=== PATIENT | female | born 1955 | race African-American/Black ===

== ENCOUNTER 2017-01-05 18:41 | Emergency (ER) | payer OTHER ==
[2017-01-05 18:56] VITALS: BP 120/79
--- NOTE | 2017-01-05 19:01 | ED Physician Documentation ---
General Adult - HISTORIAN Historian: patient - HPI Stated Complaint: broken nail Chief Complaint: General Adult Onset: minutes Further Comments: yes (61 year old female patient presents with left 4th digit broken nail. Patient states her nail caught in the screen door. Patient states she went to the nail salon, "but they couldn't do a thing with it, so I came here.") - ROS CONST: no problems EYES/ENT: none CVS/RESP: none GI/: none MS/SKIN/LYMPH: none - PAST HX Past History: hypertension Allergies/Adverse Reactions: Allergies Allergy/AdvReac Type Severity Reaction Status Date / Time No Known Allergies Allergy Verified 07/01/16 18:00 Home Medications: Ambulatory Orders Medication Instructions Recorded Fluticasone Propionate 110 Mcg 1 puff IH DAILY 11/27/14 [Flovent Hfa] Tiotropium [place] [Spiriva] 1 inh IH QD 11/27/14 amLODIPine BESYLATE [Norvasc] 5 mg PO D 11/27/14 Oxycodone HCl/Acetaminophen 1 each PO Q6H PRN 06/01/15 [Percocet 10/325] Orphenadrine Citrate [Norflex] 100 mg PO BID 7 Days 06/17/15 Meloxicam [Mobic] 7.5 mg PO BID #60 tablet 07/01/16 Meloxicam [Mobic] 7.5 mg PO BID PRN #60 tablet 07/01/16 - SOCIAL HX Smoking History: non-smoker - FAMILY HX Family History: No - VITAL SIGNS Vital Signs: Vital Signs Temp Pulse Resp BP Pulse Ox 98.1 F 90 18 120/79 98 01/05/17 18:55 01/05/17 18:55 01/05/17 18:55 01/05/17 18:55 01/05/17 18:55 - REVIEWED ASSESSMENTS Nursing Assessment Reviewed: Yes Vitals Reviewed: Yes Progress - Progress Progress: Offered to remove nail - patient refused. Encourage patient to keep dressing on nail until it grows out. General Adult Physical Exam - PHYSICAL EXAM GENERAL APPEARANCE: mild distress SKIN: warm/dry, normal color, other (4th digit - left hand with nail broken at distal nail bed. ) NEURO: oriented X3, mood/affect nml Discharge Clincal Impression: Nail bed injury Referrals: Primary Doctor,No [Primary Care Provider] - 2 Days Additional Instructions: Clean the wound twice a day with soap and water Keep covered until nail has grown out. Do not soak wound in acetone or khmer remover. Home Medications: Ambulatory Orders Fluticasone Propionate 110 Mcg [Flovent Hfa] 1 puff IH DAILY 11/27/14 Tiotropium [place] [Spiriva] 1 inh IH QD 11/27/14 amLODIPine BESYLATE [Norvasc] 5 mg PO D 11/27/14 Oxycodone HCl/Acetaminophen [Percocet 10/325] 1 each PO Q6H PRN 06/01/15 Orphenadrine Citrate [Norflex] 100 mg PO BID 7 Days 06/17/15 Meloxicam [Mobic] 7.5 mg PO BID #60 tablet 07/01/16 Meloxicam [Mobic] 7.5 mg PO BID PRN #60 tablet 07/01/16 Condition: Stable Disposition: 01 HOME, SELF-CARE Decision to Admit: NO Decision Time: 19:01
== END 2017-01-05 19:25 | disposition home or self-care (01) ==
LOC: ED 18:41
DX: S69.92XA Unspecified injury of left wrist, hand and finger(s), initial encounter (principal); X58.XXXA Exposure to other specified factors, initial encounter; Y93.9 Activity, unspecified; Y99.9 Unspecified external cause status
CPT/HCPCS: 99282

== ENCOUNTER 2017-04-09 11:59 | Emergency (ER) | payer OTHER ==
[2017-04-09 12:30] VITALS: BP 133/84
[2017-04-09] MEDS: ORPHENADRINE CITRATE 60 MG/2ML IM ONE (12:46)
[2017-04-09] MEDS: KETOROLAC TROMETHAMINE 60 MG/2 ML VIAL IM ONE (12:47)
[2017-04-09 12:54] LABS: APPEARANCE,URINE Clear (CLEAR); COLOR,URINE Yellow (YELLOW); OCCULT BLOOD,URINE Trace-lysed (NEGATIVE); PH URINE 5.5 (5.0 - 8.0); UROBILINOGEN URINE 0.2 Eu (0.2-1.0)
[2017-04-09 13:13] LABS: AMORPHOUS SEDIMENT,UR FEW (NEGATIVE)
--- NOTE | 2017-04-09 13:45 | ED Physician Documentation ---
General Adult - HISTORIAN Historian: patient - HPI Stated Complaint: Right lower back pain Chief Complaint: General Adult Further Comments: yes (62 year old female patient presents with complaints of back pain - right lower back. Denies injury or fall.) - ROS CONST: no problems EYES/ENT: none CVS/RESP: none GI/: none MS/SKIN/LYMPH: none NEURO/PSYCH: denies: headache, fainting, dizziness, tingling, numbness, difficulty walking, difficulty with speech, anxiety, depression, other - PAST HX Past History: hypertension Allergies/Adverse Reactions: Allergies Allergy/AdvReac Type Severity Reaction Status Date / Time No Known Allergies Allergy Verified 07/01/16 18:00 Home Medications: Ambulatory Orders Medication Instructions Recorded amLODIPine BESYLATE [Norvasc] 5 mg PO D 11/27/14 metroNIDAZOLE [Flagyl] 500 mg PO BID #14 tablet 04/09/17 - SOCIAL HX Smoking History: cigarettes - FAMILY HX Family History: No - VITAL SIGNS Vital Signs: Vital Signs Temp Pulse Resp BP Pulse Ox 98.8 F 96 H 25 H 133/84 96 04/09/17 12:17 04/09/17 12:17 04/09/17 12:17 04/09/17 12:17 04/09/17 12:17 - REVIEWED ASSESSMENTS Nursing Assessment Reviewed: Yes Vitals Reviewed: Yes Progress - Progress Progress: UA with trichomonas. Discussed with patient, offered STD testing. Education provided. Patient would like testing. Speculum exam - STD testing obtained, large amount of white discharge. Patient tolerated well. No adnexal tenderness. ED Results Lab/Radiology - Lab Results Lab Results: Lab Results 04/09/17 12:50 Urine Color Yellow (YELLOW) Urine Appearance Clear (CLEAR) Urine pH 5.5 (5.0 - 8.0) Ur Specific [place] 1.020 (1.010-1.030) Urine Protein Negative mg/dL mg/dL (NEGATIVE) Urine Ketones Negative mg/dL mg/dL (NEGATIVE) Urine Occult Blood Trace-lysed (NEGATIVE) Urine Nitrite Negative (NEGATIVE) Urine Bilirubin Negative (NEGATIVE) Urine Urobilinogen 0.2 Eu Eu (0.2-1.0) Ur Leukocyte Esterase Trace (NEGATIVE) Urine RBC 0-2 (0-2 HPF) Urine WBC 5-10 H (0-5 HPF) Ur Squamous Epith Cells Few (NEG-FEW) Amorphous Sediment Few H (NEGATIVE) Urine Trichomonas Present H (NEGATIVE) Urine Glucose Negative mg/dL mg/dL (NEGATIVE) - Orders Orders: ED Orders Category Date Time Status Pelvic Exam with Cultures 1T Care 04/09/17 13:25 Active CHLAMYDIA & GONORRHOEAE Stat Lab 04/09/17 Ordered TRICHOMONAS & COLLEEN PREP GENITAL Stat Lab 04/09/17 12:50 Received UA W/MICRO IF INDICATED Stat Lab 04/09/17 12:50 Completed URINE CULTURE Stat Lab 04/09/17 12:50 Received Ketorolac Tromethamine [Toradol] Med 04/09/17 12:28 Discontinued 60 mg IM NOW ONE Orphenadrine Citrate [Norflex] Med 04/09/17 12:28 Discontinued 60 mg IM NOW ONE General Adult Physical Exam - PHYSICAL EXAM GENERAL APPEARANCE: [id number] N EENT: eye inspection normal, DEBBIE RESPIRATORY: no resp distress, chest non-tender, breath sounds normal CVS: reg rate & rhythm, heart sounds normal, equal pulses, no murmur, no gallop , PMI nml, no JVD, no friction rub, 24 ABDOMEN: soft, no organomegaly, normal bowel sounds, no abdominal bruit, no distension BACK: normal inspection, no CVA tenderness, other (Right lower backbreaker to light palpation) SKIN: normal color, warm/dry, NR, INT, PAL, DR EXTREMITIES: non-tender, normal range of motion, no evidence of injury, no edema , J, [employer] NEURO: oriented X3, CN's nml as tested, motor nml, sensation nml, mood/affect nml Discharge Clincal Impression: Trichomoniasis of vagina Prescriptions: metroNIDAZOLE [Flagyl] 500 mg PO BID #14 tablet Referrals: Primary Doctor,No [Primary Care Provider] - 2 Days Additional Instructions: Your urine specimen was positive for trich. We have sent off a vaginal swab to confirm. We have sent off gonorrhoeae and chloamydia testing as well Results should come back in 24-48 hours. You can call the ER for results, if any tests are positive we will call you. An antibiotic was sent to the pharmacy today, pick it up and start it today. No intercourse until you have completed your antibiotic. Encourage any sexual partners to obtain testing at their DOCTOR'S OFFICE or the health department. Home Medications: Ambulatory Orders amLODIPine BESYLATE [Norvasc] 5 mg PO D 11/27/14 metroNIDAZOLE [Flagyl] 500 mg PO BID #14 tablet 04/09/17 Condition: Stable Disposition: 01 HOME, SELF-CARE Decision to Admit: NO Decision Time: 13:44
== END 2017-04-09 13:50 | disposition home or self-care (01) ==
LOC: ED 11:59
DX: A59.01 Trichomonal vulvovaginitis (principal)
CPT/HCPCS: 81002; 87086; 87210; 87801; J1885; J2360; 87186; 96372; 99283

== ENCOUNTER 2017-06-02 11:26 | Emergency (ER) | payer OTHER ==
--- NOTE | 2017-06-02 12:00 | ED Physician Documentation ---
Low Back Pain - HISTORIAN Historian: patient - HPI Stated Complaint: back pain Chief Complaint: Low Back Pain/ Injury Additional Information: no new trauma. she had surgery on the 5th and her back has been hurting ever since. usually takes aleve but not helping now. no injury. has chronic back pain. now radiating down R leg. History: history of chronic pain:, back pain Onset: days ago Duration: continues in ED Recent Injury: No Severity: mild Quality: sharp, similar- prior back pain Associated Symptoms: denies: fever, chills, constipation, incontinence, problems urinating, weakness Worsened By:: movement to RT flexion, movement to LT flexion Relieved By: nothing Further Comments: no - ROS CONST: no problems CVS/RESP: none EYES/ENT: none MS/SKIN/LYMPH: none Neuro/Psych: none GI/: denies: abdominal pain - PAST HX Past History: arthritis, back pain Other History: hypertension Surgeries/Procedures: hysterectomy, Allergies/Adverse Reactions: Allergies Allergy/AdvReac Type Severity Reaction Status Date / Time No Known Allergies Allergy Verified 06/02/17 11:43 Home Medications: Ambulatory Orders Medication Instructions Recorded amLODIPine BESYLATE [Norvasc] 5 mg PO D 11/27/14 - SOCIAL HX Smoking History: cigarettes Alcohol Use: none Drug Use: none - FAMILY HX Family History: none - VITAL SIGNS Vital Signs: Vital Signs Temp Pulse Resp BP Pulse Ox 98.2 F 81 18 155/75 98 06/02/17 11:36 06/02/17 11:36 06/02/17 11:36 06/02/17 11:36 06/02/17 11:36 - REVIEWED ASSESSMENTS Nursing Assessment Reviewed: Yes Vitals Reviewed: Yes Low Back Pain/Injury - Physical Exam General Appearance: no acute distress, alert EENT: ENT inspection normal Neck: non-tender Resp/CVS: chest non-tender Abdomen: non-tender Back: vertebral point-tendernes, muscle spasm Neuro/Psych: oriented x3 Skin: warm/dry, normal color Extremities: non-tender, no evidence of injury Discharge Clincal Impression: Sciatica associated with disorder of lumbar spine Back pain Qualifiers: Back pain location: low back pain Chronicity: chronic Back pain laterality: right Sciatica presence: with sciatica Sciatica laterality: sciatica of right side Qualified Code(s): M54.41 - Lumbago with sciatica, right side; G89.29 - Other chronic pain Referrals: Primary Doctor,No [Primary Care Provider] - 2 Days Condition: Stable Disposition: 01 HOME, SELF-CARE Decision to Admit: NO Date of Decison to Admit: 06/02/17 Decision Time: 12:03
[2017-06-02] MEDS ORDERED: methylPREDNISolone SOD SUCC 125 MG/2 ML VIAL IM ONE (12:03)
[2017-06-02] MEDS ORDERED: KETOROLAC TROMETHAMINE 30 MG/1ML VIAL IM ONE (12:04)
[2017-06-02] MEDS ORDERED: ORPHENADRINE CITRATE 60 MG/2ML IM ONE (12:04)
[2017-06-02 12:32] VITALS: BP 142/74
== END 2017-06-02 12:30 | disposition home or self-care (01) ==
LOC: ED 11:26
DX: M54.30 Sciatica, unspecified side (principal); M54.41 Lumbago with sciatica, right side
CPT/HCPCS: J1885; J2360; J2930; 96374; 96375; 99283

== ENCOUNTER 2017-09-12 07:29 | Emergency (ER) | payer OTHER ==
--- NOTE | 2017-09-12 07:49 | ED Physician Documentation ---
Upper Respiratory Symptoms - HISTORIAN Historian: patient, child - HPI Chief Complaint: Cough/ Upper Respiratory Additional Information: onset yest of sig non prod cough ache all over lachelle chest back from coughing-no fever-no prev flu vaccine Onset: days ago (1) Duration: intermittent episodes Context: denies: recent foreign travel, insect bite(s), recent chemotherapy Severity: moderate Associated Symptoms: chills, sweating, runny nose, sore throat, hurts to breathe. denies: fever, productive cough - ROS CONST/EYES: weakness. denies: eye redness, eye itching CVS/RESP: chest pain, shortness of breath (lachelle w/ coughing bouts) LYMPH: denies: leg swelling, swollen glands, ankle swelling GI/: denies: abdominal pain, problems urinating, vomiting, nausea, diarrhea MS/SKIN: joint pain, muscle aches. denies: rash - PAST HX Lung Disease: asthma, bronchitis. denies: pneumonia PE Risk Factors: hypertension Surgeries/Procedures: hysterectomy (pt states pre cancerous colonic polyp found last) Allergies/Adverse Reactions: Allergies Allergy/AdvReac Type Severity Reaction Status Date / Time No Known Allergies Allergy Verified 09/12/17 07:47 Home Medications: Ambulatory Orders Medication Instructions Recorded amLODIPine BESYLATE [Norvasc] 5 mg PO D 11/27/14 - SOCIAL HX Smoking History: cigarettes Alcohol Use: none Drug Use: none - FAMILY HX Family History: denies: no significant history (flu in family-pt says "I got it from my daughter") - VITAL SIGNS Vital Signs: Vital Signs Temp Pulse Resp BP Pulse Ox 98.8 F 111 H 26 H 142/74 94 09/12/17 07:49 09/12/17 07:49 09/12/17 07:49 06/02/17 12:30 09/12/17 07:49 - REVIEWED ASSESSMENTS Nursing Assessment Reviewed: Yes Vitals Reviewed: Yes ED Results Lab/Radiology - Radiology Radiology Impressions: cxr=poss rlq infiltrate--radiologists thinks normal - Orders Orders: ED Orders Category Date Time Status CHEST P.A.&LAT 2 VIEWS [RAD] Stat Exams 09/12/17 Ordered INFLUENZA A&B Routine Lab 09/12/17 Uncollected Benzonatate [Tessalon] Med 09/12/17 08:36 Discontinued 200 mg PO .STK-MED ONE Benzonatate [Tessalon] Med 09/12/17 08:36 Once 200 mg PO NOW ONE Ibuprofen [Advil] Med 09/12/17 08:11 Once 600 mg PO NOW ONE Ipratropium/Albuterol Sulfate [Duoneb] Med 09/12/17 07:51 Once 3 ml NEB NOW ONE Upper Respiratory Symptoms - EXAM General Appearance: mild distress, moderate distress EENT: No: eyes nml inspection Neck: normal inspection Respiratory: speaks full sentences, decreased air movement, wheezes, rales. No : breath sounds nml, respiratory failure, retractions, splinting Abdomen: non-tender (perhaps from frequent coughing) CVS: reg rate & rhythm Skin: color nml, no rash, warm,dry. No: cyanosis, diaphoresis, pallor Extremities: non-tender, normal range of motion, no evidence of injury Neuro/Psych: oriented x3, depressed mood/affect Discharge Clincal Impression: influenza non a/b Referrals: Primary Doctor,No [Primary Care Provider] - 2 Days Comments: rest bal nutrition vits ibu tessalon as needed Condition: Fair Disposition: 01 HOME, SELF-CARE Decision to Admit: NO Decision Time: 08:39
[2017-09-12] MEDS ORDERED: IPRATROPIUM/ALBUTEROL SULFATE 3 ML AMPUL.NEB NEB ONE (07:51)
[2017-09-12] MEDS ORDERED: IBUPROFEN 200 MG TABLET PO ONE (08:11)
[2017-09-12] MEDS ORDERED: BENZONATATE 100 MG CAPSULE PO ONE ×2 (08:36)
--- NOTE | 2017-09-12 08:38 | Diagnostic Imaging Report ---
[facility] [id number] [id number] Report Submission Date: Sep 12, 2017 8:31:21 AM GUEST SERVICE SUPERVISOR Patient Study Name: ERVIN CANALES Date: Sep 12, 2017 8:15:01 AM GUEST SERVICE SUPERVISOR Modality Type: CR Gender: F Description: CHEST : 51 Institution: [facility] Physician: LAMONT MARTINEZ Chest, PA and lateral History: Cough, shortness of breath Findings: No infiltrate, effusion or pneumothorax is present. Heart size, mediastinum and pulmonary vascularity are normal. Impression: No active disease. Electronically signed on Sep 12, 2017 8:31:21 AM GUEST SERVICE SUPERVISOR by: Gorge ALONSO
== END 2017-09-12 08:49 | disposition home or self-care (01) ==
LOC: ED 07:29
DX: J11.1 Influenza due to unidentified influenza virus with other respiratory manifestations (principal)
CPT/HCPCS: 71020; 87400; 94640; 99282; 99283; A9270

== ENCOUNTER 2018-01-03 21:30 | Emergency (ER) | payer OTHER ==
--- NOTE | 2018-01-03 22:05 | ED Physician Documentation ---
Low Back Pain - HISTORIAN Historian: patient, friend - [facility] Chief Complaint: Low Back Pain/ Injury Additional Information: has chronic low back pain on prn percocet prn-not relieving this time. onset pain when twisted back while trying on clothes this aM History: history of chronic pain: Onset: hours (7) Duration: continues in ED Recent Injury: No Context: turning Where: home Other Injuries: back Severity: mild Quality: burning, similar- prior back pain Associated Symptoms: nausea. denies: fever, chills, sweating, constipation, incontinence, vomiting Worsened By:: movement to RT flexion, movement to LT flexion, cough Further Comments: yes (pain rad to rt leg) - ROS CONST: no problems CVS/RESP: none EYES/ENT: none MS/SKIN/LYMPH: none - PAST HX Past History: arthritis, back pain Other History: cancer chemo, hypertension Surgeries/Procedures: hysterectomy Allergies/Adverse Reactions: Allergies Allergy/AdvReac Type Severity Reaction Status Date / Time No Known Allergies Allergy Verified 09/12/17 07:47 Home Medications: Ambulatory Orders Medication Instructions Recorded amLODIPine BESYLATE [Norvasc] 5 mg PO D 11/27/14 Benzonatate [Tessalon Perles] 200 mg PO Q6 #20 capsule 09/12/17 - SOCIAL HX Smoking History: less than 1 pack/day Alcohol Use: none - FAMILY HX Family History: no significant history - VITAL SIGNS Vital Signs: Vital Signs Temp Pulse Resp BP Pulse Ox 98.5 F 77 22 145/74 100 01/03/18 21:30 01/03/18 23:47 01/03/18 23:47 01/03/18 23:47 01/03/18 23:47 - REVIEWED ASSESSMENTS Nursing Assessment Reviewed: Yes Vitals Reviewed: Yes ED Results Lab/Radiology - Orders Orders: ED Orders Category Date Time Status Orphenadrine Citrate [Norflex] Med 01/03/18 21:58 Discontinued 60 mg IM NOW ONE methylPREDNISolone ACETATE [Depo-Medrol] Med 01/03/18 21:58 Discontinued 80 mg IM NOW ONE Low Back Pain/Injury - Physical Exam General Appearance: mild distress, moderate distress Neck: non-tender, painless ROM Resp/CVS: chest non-tender, breath sounds nml, heart sounds nml Abdomen: non-tender Back: vertebral point-tendernes, CVA tenderness, muscle spasm, other (rt lumbar et sacro iliac) Neuro/Psych: oriented x3 Skin: warm/dry, normal color. No: cyanosis, diaphoresis, jaundice Extremities: non-tender, normal range of motion, no edema Discharge Clincal Impression: acute non traumatic lo back pain, hx chronic lo back pain, htn bronchitis ca colon Referrals: Primary Doctor,No [Primary Care Provider] - 2 Days Condition: Good Disposition: 01 HOME, SELF-CARE Decision to Admit: NO Decision Time: 22:15
[2018-01-03] MEDS: methylPREDNISolone ACETATE 80 MG/ML VIAL IM ONE (22:16)
[2018-01-03] MEDS: ORPHENADRINE CITRATE 60 MG/2ML IM ONE (22:16)
[2018-01-03 23:46] VITALS: BP 145/74
== END 2018-01-03 22:23 | disposition home or self-care (01) ==
LOC: ED 21:30
DX: M54.89 Other dorsalgia (principal); M19.90 Unspecified osteoarthritis, unspecified site; I10 Essential (primary) hypertension
CPT/HCPCS: J1040; J2360; 96372; 99283